=== PATIENT | female | born 1965 | race Caucasian/White ===

== ENCOUNTER 2021-08-10 08:57 | Outpatient (CLI) | payer OTHER, MEDICAID, SELFPAY ==
[2021-08-10 09:47] LABS: Hematocrit 38.3 % (37.0-47.0); Hemoglobin 12.7 g/dL (12.0-15.0); Mean Corpuscular HGB Conc 33.2 g/dl (32-36); Mean Corpuscular Hemoglobin 29.7 pg (26-34); Mean Corpuscular Volume 89.7 fl (80-100); Mean Platelet Volume 10.1 fl (7.4-10.4); Platelet Count Result 265 k/mm3 (150-375); Red Blood Count 4.27 M/mm3 (4.2-5.4); Red Cell Distribution Width 12.5 % (11.5-14.5); White Blood Count 6.5 K/mm3 (4.5-10.0)
[2021-08-10 09:52] LABS: Appearance Urine Clear (Clear); Bilirubin Urine Negative (Negative); Blood Urine Trace-lysed (Negative); Color Urine Yellow (Yellow); Glucose Urine UA Negative (Negative); Ketones Urine Negative (Negative); Leukocyte Esterase Ur 1+ LEU/UL (NEGATIVE); Nitrate Urine Negative (Negative); Protein Urine Negative (Negative); Specific Grav Ur 1.015 (1.001-1.035); Urobilinogen Urine 0.2 mg/dL (<2.0); pH Urine 5.5 (5.0-9.0)
[2021-08-10 09:56] LABS: Add Urine Microscopic? YES
[2021-08-10 09:56] LABS: Alanine Aminotransferase 14 U/L (6-35); Albumin Level 4.6 g/dL (3.5-5.1); Alkaline Phosphatase 69 U/L (38-126); Anion Gap 4 mmol/L (8-16); Aspartate Amino Transferase 22 U/L (14-36); Bilirubin,Total 0.5 mg/dL (0.2-1.3); Blood Urea Nitrogen 17 mg/dL (7-17); Calcium 9.2 mg/dL (8.4-10.2); Carbon Dioxide 29 mmol/L (22-30); Chloride 106 mmol/L (98-107); Cholesterol 180 mg/dL (0-200); Estimated Glomerular Filt Rate > 60; Glucose 82 mg/dL (65-110); HDL Direct 50 mg/dL; Potassium 3.9 mmol/L (3.4-5.0); Sodium 139 mmol/L (137-145); Triglycerides 65 mg/dL (<150)
[2021-08-10 10:03] LABS: Mucus Urine Few /lpf; RBC Urine 0-2 /hpf (0-2); Squamous Epithelial Cell Urine Occasional /hpf (Few)
[2021-08-10 10:07] LABS: LDL Cholesterol Direct 89 mg/dL
[2021-08-10 14:00] LABS: Hemoglobin A1C 5.7 % (<5.7)
== END 2021-08-10 08:58 | disposition home or self-care (01) ==
LOC: ANHLAB 09:04
PROVIDERS: Visit Provider Nurse Practitioner Family
DX: Z00.00 Encounter for general adult medical examination without abnormal findings (principal); Z13.29 Encounter for screening for other suspected endocrine disorder; Z13.1 Encounter for screening for diabetes mellitus; Z13.89 Encounter for screening for other disorder
CPT/HCPCS: 36415; 80053; 80061; 81001; 83036; 84443; 85027

== ENCOUNTER 2021-11-12 08:40 | Outpatient (CLI) | payer OTHER, MEDICAID, SELFPAY ==
--- NOTE | ~2021-11-12 | MM_ITS ---
EXAMINATION: MM screening sd BI w daria HISTORY: Screening mammogram TECHNIQUE: Craniocaudal and mediolateral oblique 3-D tomosynthesis images were obtained and synthetic 2-D images were generated. CAD analysis was submitted and interpreted. COMPARISON: 07/17/2014, 11/15/2012 bilateral screening mammogram examinations BREAST PARENCHYMAL COMPOSITION: There are scattered areas of fibroglandular density. FINDINGS: Subtle grouped microcalcifications are suggested in the outer anterior left breast on CC vi ew; diagnostic left mammogram with magnification views is recommended. Otherwise there is no evidence of suspicious mass, calcification, or architectural distortion to sugg est malignancy in either breast. There has been no other suspicious interval change. IMPRESSION: 1. Possible subtle grouped microcalcifications, anterior outer left breast on CC view 2. Diagnostic left mammogram is recommended BI-RADS Category 0: Incomplete: Needs additional imaging evaluation. Reviewed, dictated and finalized at location A. IMPRESSION: 1. Possible subtle grouped microcalcifications, anterior outer left breast on C C view 2. Diagnostic left mammogram is recommended BI-RADS Category 0: Incomplete: Needs additional imaging evaluation.
== END 2021-11-12 08:41 | disposition home or self-care (01) ==
PROVIDERS: Visit Provider Nurse Practitioner Family
DX: Z12.31 Encounter for screening mammogram for malignant neoplasm of breast (principal); R92.8 Other abnormal and inconclusive findings on diagnostic imaging of breast
CPT/HCPCS: 77063; 77067

== ENCOUNTER 2021-12-24 11:50 | Outpatient (CLI) | payer OTHER, MEDICAID, SELFPAY ==
--- NOTE | ~2021-12-24 | MM_ITS ---
EXAMINATION: MM diagnostic sd LT w daria HISTORY: Indeterminate left breast calcifications on screening mammogram TECHNIQUE: Magnification views of the left breast were performed and synthetic 2-D images were genera nicolette. CAD analysis was submitted and interpreted. COMPARISON: 11/12/2021, 07/25/2014, 11/15/2012 FINDINGS: No definite persistent calcifications are identified with magnification views. Screening ma mmogram finding likely reflects pseudocalcification. No suspicious mass or architectural distortion a re identified. IMPRESSION: 1. No mammographic evidence of malignancy. 2. Recommend routine screening mammography in one year. BI-RADS Category 1: Negative Reviewed, dictated and finalized at location A.
== END 2021-12-24 11:51 | disposition home or self-care (01) ==
PROVIDERS: PCP Family Medicine; Visit Provider Nurse Practitioner Family
DX: R92.8 Other abnormal and inconclusive findings on diagnostic imaging of breast (principal)
CPT/HCPCS: 77061; 77065; G0279

== ENCOUNTER 2022-08-23 09:52 | Outpatient (CLI) | payer OTHER, MEDICAID, SELFPAY ==
[2022-08-23 10:54] LABS: Hemoglobin 12.7 g/dL (12.0-15.0); Mean Corpuscular HGB Conc 31.8 g/dl (32-36); Mean Corpuscular Hemoglobin 28.9 pg (26-34); Mean Corpuscular Volume 91.1 fl (80-100); Mean Platelet Volume 10.1 fl (7.4-10.4); Platelet Count Result 270 k/mm3 (150-375); Red Blood Count 4.39 M/mm3 (4.2-5.4); Red Cell Distribution Width 12.3 % (11.5-14.5); White Blood Count 6.1 K/mm3 (4.5-10.0)
[2022-08-23 10:57] LABS: Appearance Urine Clear (Clear); Bilirubin Urine Negative (Negative); Blood Urine Negative (Negative); Color Urine Yellow (Yellow); Glucose Urine UA Negative (Negative); Ketones Urine Negative (Negative); Leukocyte Esterase Ur Negative LEU/UL (NEGATIVE); Nitrate Urine Negative (Negative); Protein Urine Negative (Negative); Specific Grav Ur 1.008 (1.001-1.035); Urobilinogen Urine 0.2 mg/dL (<2.0); pH Urine 5.5 (5.0-9.0)
[2022-08-23 11:01] LABS: Add Urine Microscopic? NO
[2022-08-23 11:03] LABS: Hemoglobin A1C 5.7 % (<5.7)
[2022-08-23 11:04] LABS: Alanine Aminotransferase 20 U/L (6-35); Albumin Level 4.8 g/dL (3.5-5.1); Alkaline Phosphatase 77 U/L (38-126); Anion Gap 7 mmol/L (8-16); Aspartate Amino Transferase 27 U/L (14-36); Bilirubin,Total 0.7 mg/dL (0.2-1.3); Blood Urea Nitrogen 17 mg/dL (7-17); Calcium 9.5 mg/dL (8.4-10.2); Carbon Dioxide 28 mmol/L (22-30); Chloride 101 mmol/L (98-107); Cholesterol 198 mg/dL (0-200); Estimated Glomerular Filt Rate 52; Glucose 89 mg/dL (65-110); HDL Direct 68 mg/dL; Potassium 4.3 mmol/L (3.4-5.0); Sodium 136 mmol/L (137-145); Triglycerides 83 mg/dL (<150)
[2022-08-23 11:15] LABS: LDL Cholesterol Direct 100 mg/dL
== END 2022-08-23 09:53 | disposition home or self-care (01) ==
PROVIDERS: PCP Family Medicine; Visit Provider Nurse Practitioner Family
DX: Z00.01 Encounter for general adult medical examination with abnormal findings (principal); Z13.29 Encounter for screening for other suspected endocrine disorder; Z13.220 Encounter for screening for lipoid disorders; Z13.89 Encounter for screening for other disorder; Z13.1 Encounter for screening for diabetes mellitus
CPT/HCPCS: 36415; 80053; 80061; 81003; 83036; 84443; 85027

== ENCOUNTER 2023-12-02 10:16 | Outpatient (CLI) | payer OTHER, SELFPAY ==
--- NOTE | ~2023-12-02 | XR_ITS ---
Clinical Indication: Dyspnea PA and lateral views of the chest: Comparison: None Findings: The lungs are clear, without evidence of focal consolidation or pleural effusion. Cardiome diastinal silhouette is within normal limits. Bones and soft tissues are unremarkable. Impression: Normal chest. Reviewed, dictated and finalized at location . Impression: Normal chest.
[2023-12-02 10:46] LABS: Basophils Percent Auto 0.4 % (0.2-1.2); Eosinophils Absolute Auto 0.2 K/mm3 (0-0.3); Eosinophils Percent Auto 2.1 % (0-4.4); Hematocrit 36.6 % (37.0-47.0); Immature Granulocyte Absolute 0.03 K/mm3 (0.00-0.031); Immature Granulocyte Percent A 0.4 % (0-0.5); Lymphocytes Absolute Auto 1.32 K/mm3 (0.9-3.2); Lymphocytes Percent Auto 17.2 % (18.3-44.2); Mean Corpuscular HGB Conc 32.8 g/dl (32-36); Mean Corpuscular Hemoglobin 30.6 pg (26-34); Mean Corpuscular Volume 93.4 fl (80-100); Mean Platelet Volume 9.4 fl (7.4-10.4); Monocytes Absolute Auto 0.8 K/mm3 (0.1-0.6); Monocytes Percent Auto 10.2 % (2.6-8.5); Neutrophils Absolute Auto 5.4 K/mm3 (1.3-6.7); Neutrophils Percent Auto 69.7 % (45.5-73.1); Platelet Count Result 241 k/mm3 (150-375); Red Blood Count 3.92 M/mm3 (4.2-5.4); Red Cell Distribution Width 12.9 % (11.5-14.5); White Blood Count 7.7 K/mm3 (4.5-10.0)
[2023-12-02 11:08] LABS: LDL Cholesterol Direct 83 mg/dL
[2023-12-02 11:19] LABS: Rheumatoid Factor < 12.0 IU/ML (<12)
[2023-12-02 11:21] LABS: Alanine Aminotransferase 16 U/L (6-35); Albumin Level 4.4 g/dL (3.5-5.1); Alkaline Phosphatase 79 U/L (38-126); Anion Gap 9 mmol/L (4-12); Aspartate Amino Transferase 24 U/L (14-36); Bilirubin,Total 0.8 mg/dL (0.2-1.3); Blood Urea Nitrogen 12 mg/dL (7-17); CRP 1.9 mg/dL (<1.0); Calcium 9.4 mg/dL (8.4-10.2); Carbon Dioxide 26 mmol/L (22-30); Chloride 103 mmol/L (98-107); Cholesterol 189 mg/dL (0-200); Estimated Glomerular Filt Rate 57; Glucose 94 mg/dL (65-110); HDL Direct 70 mg/dL; Potassium 4.4 mmol/L (3.4-5.0); Sodium 138 mmol/L (137-145); Triglycerides 58 mg/dL (<150)
[2023-12-02 11:28] LABS: Hemoglobin A1C 5.9 % (<5.7)
[2023-12-02 11:38] LABS: Vitamin D 25 Hydroxy 30.3 ng/mL
[2023-12-02 11:51] LABS: Thyroid Stimulating Hormone Reflex 0.579 uIU/mL (0.465-4.68)
== END 2023-12-02 10:17 | disposition home or self-care (01) ==
LOC: ANHLAB 10:20
PROVIDERS: PCP Family Medicine; Visit Provider Nurse Practitioner Family
DX: Z00.00 Encounter for general adult medical examination without abnormal findings (principal); I10 Essential (primary) hypertension; M25.50 Pain in unspecified joint; R06.00 Dyspnea, unspecified
CPT/HCPCS: 36415; 71046; 80053; 80061; 82306; 83036; 84443; 85025; 86038; 86039; 86140; 86430

== ENCOUNTER 2023-12-06 15:08 | Outpatient (CLI) | payer OTHER, SELFPAY ==
--- NOTE | ~2023-12-06 | MM_ITS ---
EXAMINATION: MM screening sd BI w daria HISTORY: Screening TECHNIQUE: Craniocaudal and mediolateral oblique 3-D tomosynthesis images were obtained and synthetic 2-D images were generated. CAD analysis was submitted and interpreted. COMPARISON: Comparison to multiple prior studies sequentially, with oldest reviewed study dated 07/25. BREAST PARENCHYMAL COMPOSITION: Not dense: There are scattered areas of fibroglandular density. FINDINGS: There is a possible new area of architectural distortion medially in the right breast on CC view. The left breast is stable without evidence for malignancy. IMPRESSION: 1. Possible new architectural distortion of the right breast medially. 2. Additional mammographic views and possible breast ultrasound are recommended. BI-RADS Category 0: Incomplete: Needs additional imaging evaluation. Reviewed, dictated and finalized at location B. IMPRESSION: 1. Possible new architectural distortion of the right breast medially. 2. Additional mammographic views and possible breast ultrasound are recommended . BI-RADS Category 0: Incomplete: Needs additional imaging evaluation.
== END 2023-12-06 15:09 | disposition home or self-care (01) ==
LOC: ANHIMG 15:09
PROVIDERS: PCP Family Medicine; Visit Provider Nurse Practitioner
DX: Z12.31 Encounter for screening mammogram for malignant neoplasm of breast (principal)
CPT/HCPCS: 77063; 77067

== ENCOUNTER 2023-12-28 13:02 | Outpatient (CLI) | payer OTHER, SELFPAY ==
--- NOTE | ~2023-12-28 | MMUS_ITS ---
EXAMINATION: MM diagnostic sd RT w daria, US breast RT limited HISTORY: Possible right breast architectural distortion TECHNIQUE: Additional 3-D tomosynthesis images of the right breast were performed and synthetic 2-D i mages were generated. CAD analysis was submitted and interpreted. High resolution limited right breas t ultrasound was performed. COMPARISON: 12/28/2023, 11/12/2021 BREAST PARENCHYMAL COMPOSITION:Not Dense. There are scattered areas of fibroglandular density. FINDINGS: MAMMOGRAPHIC FINDINGS: Area of possible distortion demonstrates partial effacement on CC view, but effaces on MLO view. No m ass lesion or suspicious calcification. ULTRASOUND: No sonographic abnormality seen in the region scanned. No sonographic correlate for the mammographic finding seen. IMPRESSION: The area of possible distortion in the inner right breast is probably benign, with partial effacemen t and no sonographic correlate. Six-month follow-up right breast mammogram is recommended to ensure s tability. BI-RADS category 3, probably benign findings. Reviewed, dictated and finalized at location M. IMPRESSION: The area of possible distortion in the inner right breast is probably benign, with partial effacement and no sonographic correlate. Six-month follow-up right breast mammogram is recommended to ensure stability. BI-RADS category 3, probably benign findings.
== END 2023-12-28 13:03 | disposition home or self-care (01) ==
LOC: ANHIMG 13:03
PROVIDERS: PCP Family Medicine; Visit Provider Obstetrics & Gynecology
DX: R92.8 Other abnormal and inconclusive findings on diagnostic imaging of breast (principal)
CPT/HCPCS: 76642; 77061; 77065; G0279

== ENCOUNTER 2024-12-20 13:12 | Outpatient (CLI) | payer OTHER, SELFPAY ==
--- NOTE | ~2024-12-20 | MM_ITS ---
EXAMINATION: MM diagnostic sd BI w daria INDICATION: 59-year old female; 6 month follow up possible distortion in the right breast with no sonographic correlate, initially evaluated on 12/28/2023. COMPARISON: 12/28/2023 through 07/25/2014. TECHNIQUE: Bilateral breast Digital breast tomosynthesis ML, CC and MLO views were obtained with computer-aided detection to assist in interpretation of the study. FINDINGS: There are scattered areas of fibroglandular density. The asymmetry of concern in the inner right breast at posteriorthird redemonstrated is Unchanged dating back to mammogram of 11/12/2021. It is therefore considered benign. No other focal dominant mass, architectural distortion, or suspicious microcalcifications are identified. IMPRESSION: Benign mammogram. No mammographic evidence of malignancy in either breast. RECOMMEND: Annual screening mammography in 12 months. BI-RADS 2, BENIGN Reviewed, dictated and finalized at location B.
--- OUTSIDE RECORDS SUMMARY | 2024-12-20 14:08 | XMS_ITS | Clinical Summary ---
Author Organization [facility] Address [address] 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 Gender Identity Not on file Sexual Orientation Not on file Plan of Treatment Health Maintenance Due Date Last Done Comments DTAP/TDAP/TD VACCINES (1 - Tdap) 07/06/1986 HEPATITIS B VACCINES (1 of 3 - 19+ 3-dose series) 10/1986 HPV/Cotest (21-29) 07/06/1988 CERVICAL CANCER SCREENING 07/06/1997 HPV/Cotest (30-65) 07/06/1997 PAP SMEAR 07/06/1997 BREAST CANCER SCREENING 2007 COLORECTAL SCREENING 07/06/2012 Colorectal Cancer Screening 07/06/2012 FIT-DNA Q 3 years 07/06/2012 FIT/FOBT Q 1 year 07/06/2012 Flex Sig/CT Colonography Q 5 years 07/06/2012 ZOSTER VACCINE (1 of 2) 07/06/2017 INFLUENZA VACCINE (#1) 2024
--- OUTSIDE RECORDS SUMMARY | 2024-12-20 14:09 | XMS_ITS | Data Portability ---
Author Organization [facility] [place] Address [address] [place] [address] [place] [address] Assessment Encounter Date Assessment Date Assessment LastModified by Organization Details LastModified Time 09/24/2019 09/24/2019 Annual gynecological exam performed. Patient will come back in a year unless there are new symptoms. [email or web address] Not available 09/24/2019 14:59:19 10/13/2020 10/13/2020 Annual gynecological exam performed. Patient will come back in a year unless there are new symptoms. Not available 10/13/2020 13:37:10 09/28/2023 09/28/2023 Annual gynecological exam performed. Patient will come back in a year unless there are new symptoms. [email or web address] Not available 09/28/2023 09:50:54 10/02/2024 10/02/2024 Annual gynecological exam performed. Patient will come back in a year unless there are new symptoms. [email or web address] Not available 10/02/2024 12:24:02 Plan of Treatment Reminders Order Date Submit Date Provider Last Modified By Organization Details Last Modified Time Details Appointments None recorded. Lab None recorded. Referral None recorded. Procedures None recorded. Surgeries None recorded. Imaging MAMMO, diagnostic , digital, bilateral - Due for f/u right breast imaging, also due for bilateral screening mammogram 2024 025 [facility] (Mammography) , [address], [place], [address], 14:24:40 US, breast, unilateral 2024 025 [facility], [address], [place], [address], 5 04:01:18 MAMMO, screening, digital, bilateral 2023 024 [facility], [address], [place], [address], 4 18:19:23 Medication Orders None recorded. Patient TargetsNo targets recorded. Patient InstructionsNo instructions recorded. Reason for Referral None Reported. Results Created Date Observation Date Name Description Value Unit Range Abnormal Flag Note LastModifiedBy Organization Detail LastModifiedTime 09/24/19 20 09/26/2019 pap, LB Pap test thin prep Negati ve for Intrae pithel ial Lesion or Malign esau normal ACCES LILIAN #: [id number] Sourc e: Cervi eze/E ndoce rvica l LMP: 07/17 Date Taken : 09/23 Speci men Type: ThinP rep Vial Date Repor zohaib: 2019 Clini eze Data: Cytot ech: Naomi Raza , CT( CP) Date Repor zohaib: 2019 Speci men Adequ acy: Satis facto ry for evalu ation Endoc ervic al/tr ansfo rmati on zone compo nent prese nt Gener al Categ oriza tion: NEGAT CAROLE FOR INTRA EPITH ELIAL LESIO N OR MALIG MERLYN This speci men has been dar zed by the ThinP rep Imagi ng Syste m, an inter activ e compu ter syste m which geovanni ts the lab in the scree doreen of ThinP rep Pap Test slide s. Follo wing imagi ng, the slide was revie wed by a Cytot echno logis t and/o r Patho logis t. D N A A S S A Y S R E P O R T TEST NAME RESUL TS ----- ---- ----- -- HPV High Risk Sasha n (TMA) ThinP rep Vial The human papil lomav irus (HPV) High Risk Sasha n is an FDA-a pprov ed in-vi tro ampli fied nucle ic acid test for the quali tativ e detec tion of E6/E7 viral mRNA. Resul ts shoul d be corre lated with patie nt prese ntati on, histo ry, cervi eze cytol ogy and other clini eze and labor atory findi ngs. See https ://Mediameeting/s ites/ defau lt/fi -0 3/- 48387 _002_ .pd f for furth er infor matio n. Test perfo rmed by [facility], [address], [place] [address] , Gaby Chi ra, DO, Labor [employer] [facility] tor. HPV High Risk *HPV NOT DETEC ZOHAIB (TYPE S 16, 18, 31, 33, 35, 39, 45, 51, 52, 56, 58, 59, 66, 68) *HPV: The human papil lomav irus (HPV) High Risk Sasha reyna is an FDA-a pprov ed in-vi tro ampli fied nucle ic acid test for the quali tativ e detec tion of E6/E7 viral mRNA. Resul annette padgett be corre lated with patie nt prese ntati on, histo ry, cervi eze cytol ogy and other clini eze and labor atory findi ngs. See https ://Mediameeting/s ites/ defau lt/fi -0 3/- 80734 _002_ 01.pd f for furth er infor matio n. Test perfo rmed by [employer] [facility], [address], [place] [address] , Gaby Chi ra, DO, [facility] [employer] [facility] tor. End of Repor t Techn ical servi debra provi ded by [employer] [facility], [address] [place] [address] Terrance Bruce MD, Labor [facility]. Case revie wed and diagn osis rende red at [facility], d/b/a Kevin annal[facility]br[facility], [address] [place] [address] Terrance Bruce MD, Labor [facility]. CONFI DENTI AL Not Available [facility] ([facility]) [address], [place], [address], 09/26/2019 17:06:17 09/24/19 20 09/26/2019 HPV DNA, high- risk HPV high risk NOT DETECT ED normal Not Available [facility] ([facility]) [address], [place], [address], 09/26/2019 17:06:17 09/28/19 24 09/28/2023 IMAGE GUIDE D PAP AND HPV REGAR DLESS image guided Pap, HPV regardless of Pap result SEE RESULT S BELOW CASE REPOR T: Cytol ogy Gynec ologi eze Repor t Case: [id number] Autho riron g Provi savi: Sharron Conrad, [employer]ODUCTION [employer] Colle cted: 09/27 1005 Order ing Locat ion: [place] Path[facility] Recei cony: 09/28 0115 First Scree n: Naomi Anderson ay, CT Speci men: Scree doreen Pap - Image d, Cervi x STATE MENT OF ADEQU ACY: Satis facto ry for evalu ation Trans forma tion zone compo nent canno t be defin itive ly ident ified due to the prese nce of atrop hy or other hormo nal harrison es Parti ally obscu ring blood prese nt ----- ----- ----- ----- ----- ----- ----- ----- ----- ----- ----- ----- ----- ----- ----- ----- ----- ---- FINAL DIAGN OSIS: Negat carole for Intra epith elial Lesio n or Hernan juan (NIL) . Atrop hic cell paty aly. Elect kenrick musa yunior d by Naomi Anderson, CT on 024 at 10:40 AM ----- ----- ----- ----- ----- ----- ----- ----- ----- ----- ----- ----- ----- ----- ----- ----- ----- ---- HPV RESUL TS: HPV mRNA E6/E7 : No HPV mRNA Detec zohaib NOTE: This high risk HPV mRNA assay detec ts fourt een high- risk HPV types (16, 18, 31, 33, 35, 39, 45, 51, 52, 56, 58, 59, 66, 68) witho ut diffe renti ation . COMME NT: This speci men was revie wed by a Cytot echno logis t and/o r Patho logis t (as indic ated in this repor t) after evalu ation using the Thinp rep Imagi ng Syste m. CLINI EZE INFOR MATIO N: Menst rual Statu s: LMP (if appli cable ): Clini eze Histo ry/Pr eviou s Pap: Type of Neopl mir (if appli cable ): Signi fican t Clini eze Findi ngs: Other Histo ry: Hormo marciano (if appli cable ): PAP EDUCA LOLY L NOTE: The Pap Test is a scree doreen test with an inher ent false negat carole rate. Liqui d-bas ed sampl ing may decre ase, but will not elimi renuka, false negat carole resul ts. A negat carole resul t does not precl ude the prese nce and/o r devel opmen t of disea se, since the prese nce of abnor mal cells in the sampl e depen ds on the locat ion of the lesio n and sampl ing techn ique. Aaliyah nued regul ar scree doreen is the best metho d of cance r preve ntion . If repor zohaib cytol ogic findi ng do not corre late with physi eze and/o r histo rical findi ngs, mil er inves tigat ion is recom kvng d, as clini kenia kiser nted. Not Available [facility] (Lab) [address], [place], [address], 10/05/2023 11:44:21 12/06/19 24 12/06/2023 MAMMO , scree doreen, digit al, bilat eral No observ ation record ed. [address] [facility], [place], [address], 12/13/2023 12:32:46 12/28/19 24 12/28/2023 US, joyce t, belema teral No observ ation record ed. [address] [address], [place], [address], 01/03/2024 11:36:07 Result Notes None recorded. Procedures Surgical History Date Name Laterality Status Provider Name and Address Organization Details Recorded Time 4 Date of Last Mammogram completed Anat Stewart [facility] 10/02/2024 12:26:09 1 section completed [facility] 10/13/2020 13:48:50 8 section completed [facility] 10/13/2020 13:48:46 0 section completed [facility] 10/13/2020 13:48:58 Imaging Results None recorded. Procedure Notes None recorded. Medical Equipment None Reported. Allergies No known drug allergies Medications Name Sig Start Date Stop Date Status Note LastModified by Organization Details LastModified Time lisinopril 20 mg tablet TAKE 1 TABLET BY MOUTH EVERY DAY active Not Available Not Available No t Available sertraline 100 mg tablet TAKE 1 TABLET BY MOUTH EVERY DAY active Not Available Not Available No t Available buspirone 10 mg tablet TAKE 1 TABLET BY MOUTH TWICE A DAY NEEDED FOR 90 DAYS active Not Available Not Available No t Available hydroxyzine HCl 25 mg tablet TAKE 1 TABLET BY MOUTH THREE TIMES A DAY NEEDED 09/27 completed Not Available Not Available Not Available albuterol sulfate HFA 90 mcg/actuati on aerosol inhaler INHALE 2 PUFFS EVERY 4 HOURS BY INHALATIO N ROUTE. 10/02 completed Not Available Not Available Not Available sertraline 50 mg tablet TAKE 1 TABLET BY MOUTH EVERY DAY 10/02 completed Not Available Not Available Not Available amoxicillin 875 mg-potassiu m clavulanate 125 mg tablet TAKE 1 TABLET BY MOUTH TWICE A DAY FOR 10 DAYS 10/13 completed Not Available Not Available Not Available escitalopra m 10 mg tablet TAKE 1 TABLET BY MOUTH EVERY DAY 10/13 completed Not Available Not Available Not Available escitalopra m 20 mg tablet TAKE 1 TABLET BY MOUTH EVERY DAY 09/27 completed Not Available Not Available Not Available escitalopra m 5 mg tablet TAKE 1 TABLET EVERY DAY BY ORAL ROUTE FOR 30 DAYS. 10/13 completed Not Available Not Available Not Available Vitals Date Recorded Body height Body mass index (BMI) Body weight Systolic And Diastolic Provider Name and Address Organization Details Last Updated DateTime 09/24/2019 1889.76 cm 0.2 kg/m2 28445.86 g 120/82 mm[Hg] Erlinda Shelby [facility] 09/24/2019 15:06:30 Date Recorded Body height Body mass index (BMI) Body weight Systolic And Diastolic Provider Name and Address Organization Details Last Updated DateTime 09/28/2023 154.94 cm 21.7 kg/m2 49500.12 g 104/71 mm[Hg] Ana Maria Castorena [facility] 09/28/2023 09:54:13 Date Recorded Body height Body mass index (BMI) Body weight Systolic And Diastolic Provider Name and Address Organization Details Last Updated DateTime 10/02/2024 154.94 cm 21.7 kg/m2 38155.12 g 114/71 mm[Hg] Anat Stewart [facility] 10/02/2024 12:24:48 Date Recorded Body height Body mass index (BMI) Body weight Systolic And Diastolic Provider Name and Address Organization Details Last Updated DateTime 10/13/2020 154.94 cm 21.7 kg/m2 81549.12 g 111/70 mm[Hg] Kristine Segovia, [facility]- [address], [place], [address], [facility] 10/13/2020 14:08:34 Social History Question Answer Notes LastModified by Organizat ion Details LastModified Time Tobacco Smoking Status Never Smoker Lissette Villareal null, [facility] 10/13/2020 13:38:02 Do You Have An Advance Directive? No Information n ot available 10/13/2020 Are You Blind Or Do You Have Difficulty Seeing? No Information n ot available 10/13/2020 What Is Your Level Of Caffeine Consumption? Moderate Information not available 10/13/2020 In The 14 Days Before Symptom Onset, Have You Had Close Contact With A Laboratory-confirm ed COVID-19 While That Case Was Ill? No Information n ot available 10/13/2020 In The 14 Days Before Symptom Onset, Have You Had Close Contact With A Person Who Is Under Investigation For COVID-19 While That Person Was Ill? No Information not available 10/13/2020 Have You Been To An Area Known To Be High Risk For COVID-19? No Information not available 10/13/2020 Are You Deaf Or Do You Have Serious Difficulty Hearing? No Information not available 10/13/2020 What Type Of Diet Are You Following? REGULAR Information n ot available 10/13/2020 What Is The Highest Grade Or Level Of School You Have Completed Or The Highest Degree You Have Received? [id number] Information not available 10/13/2020 Are There Any Guns Present In Your Home? No [email or web address] Information not available 10/02/2024 Do You Use Protection During Sex? Always Information not available 10/13/2020 Do You Use Your Seat Belt Or Car Seat Routinely? Yes Information not available 10/13/2020 Do You Have Smoke And Carbon Monoxide Detectors In Your Home? Yes Information not available 10/13/2020 How Much Tobacco Do You Smoke? No Information not available 10/13/2020 Do You Use Sunscreen Routinely? No Information not available 10/13/2020 Have You Used IV Drugs? No Information not available 10/13/2020 Sex: Unknown Functional Status Question Answer Note LastModified by Organizat ion Details LastModified Time Do you use any illicit or recreational drugs? No Information not available 10/13/2020 What is your level of alcohol consumption? Occasional Information not available 10/13/2020 Are you able to walk independently without assistance or assistive devices? 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 Occasional Information not available 10/13/2020 Mental Status Question Answer Note LastModified by Organization D etails LastModified Time Do you feel stressed (tense, restless, nervous, or anxious, or unable to sleep at night)? [id number] [email or web address] Information not available 10/02/2024 Family History Relationship Description Onset Age of this Age Resolved Age Notes LastModified by Organization Details LastModified Time Father Hypertensive disorder [email or web address] Not available 2019 15:00:48 Medical History Condition Response Allergies (Food, seasonal, environmental ) N Other N Blood Transfusion N Drug/Latex Allergies/Reactions N Breast Cancer N Dermatologic Disorders N Lung Disease N Defects or Inherited Disease N Breast Problem N Gestational Diabetes N Hematologic disorders N Anesthesia Complications N History of STI N Deep Vein Thrombosis N Polycystic ovary syndrome N Anxiety Disorder Y Autoimmune disease N Arthritis N Infertility N Polyps N Acid Reflux (GERD) N History of abnormal pap N Cancer N Stroke N Varicosities N Neurologic/Epilepsy N Endometriosis N High Cholesterol N Headaches N Fibromyalgia N Kidney Disease N Heart Problems N Kidney or Bladder Problems N Thyroid Problems N GI Problems N Eating Disorder N Anemia N Art (IVF or FET) N Psychiatric Illness N Ovarian Cancer N Diabetes N Pulmonary (TB, Asthma) N Hepatitis/Liver Disease N Eczema N Urinary Tract Infection N Abuse/Domestic Violence N Asthma N Trauma/Violence N Depression/ depression Y Heart Disease N Pre-Eclampsia N Hypertension Y Osteoporosis N Thrombophilias N Gynecological History Statement/Question Response Abnormal Pap N Date of Last Mammogram 12/28/2023 On BCP's at Conception? N N STIs/STDs N HPV Vaccine N Colposcopy 13 Current Control Method Tubal Ligat ion Age at First Child 23 If Post Menopausal, Age at Menopause 45 Date of Last Colonoscopy Sexually Active? N Date of DEXA bone scan Age of first menstrual cycle 15 Date of Last Pap Smear Sexual Problems? N LMP Unknown N Obstetrics History GPAL:G 3 P 0 0 0 3 Type Value Living 3 Total 3 Past Encounters Encounter ID Performer Location Encounter Start Date Encounter Closed Date Diagnosis/Indication Diagnosis SNOMED-CT Code Diagnosis ICD10 Code Diagnosis IMO Codes Diagnosis Note [id number] [facility] [address],[facility] [place] [address] 09/24/2019 14:55:46 09/24/2019 16:14:24 Gynecologic examination 62121030 Z01.419 Take Calcium with Vitamin D 12-1500mg daily. Do monthly self breast exams. It is advised to get annual flu shot in the fall and she could obtain at [facility] or [facility]. If you haven't received the Tdap vaccine in the last 10 years you should obtain one as well. Have mammogram yearly, bone density every 2-3 years and colonoscop y every 5-10 years depending on findings and history. Engage in daily exercise of low impact aerobic exercise 45-60 minutes 4-5 times weekly. Avoid tobacco and illicit drugs as well as using moderation with alcohol intake less than 1-2 8 oz beverages daily. This lifestyle behavior pattern will lead to less health conditions and longer life span. If BMI greater than 25 weight watchers or dietary consult advised. Questions have been answered. Patient appears to understand instructio ns, but if you have any further questions call or respond to this email [id number] [facility] [address] [address] 10/13/2020 13:26:49 10/13/2020 14:11:56 Gynecologic examination 01685522 Z01.419 Take Calcium with Vitamin D 12-1500mg daily. Do monthly self breast exams. It is advised to get annual flu shot in the fall and she could obtain at [facility] or [facility]. If you haven't received the Tdap vaccine in the last 10 years you should obtain one as well. Have mammogram yearly, bone density every 2-3 years and colonoscop y every 5-10 years depending on findings and history. Engage in daily exercise of low impact aerobic exercise 45-60 minutes 4-5 times weekly. Avoid tobacco and illicit drugs as well as using moderation with alcohol intake less than 1-2 8 oz beverages daily. This lifestyle behavior pattern will lead to less health conditions and longer life span. If BMI greater than 25 weight watchers or dietary consult advised. Questions have been answered. Patient appears to understand instructio ns, but if you have any further questions call or respond to this email Pap/hpv hx wnlPap/hpv q3-5yrs per asccp unless otherwise indicated. STD declinedNo issues or concernsMa mmo orderedCol on UTDDexa due next year [id number] GABRIELA Almaraz [facility] [address] [address] 09/28/2023 09:48:11 09/28/2023 10:18:02 Gynecologic examination 41974119 Z01.419 WWEpostmen opausalpap updateddec lined STI screenmamm ogram order givenColon cancer screening discussed - cologuard order sent Do monthly self breast exams. It is advised to get annual flu shot in the fall and she could obtain at local pharmacy. If you haven't received the Tdap vaccine in the last 10 years you should obtain one as well. Have mammogram yearly and stay up to date on colon cancer screening. Engage in regular exercise. Avoid tobacco and illicit drugs. If BMI greater than 25 dietary consult advised. Questions have been answered. Screening for malignant neoplasm of breast [id number] Z12.39 [id number] GABRIELA Almaraz [facility] [address] [address] 10/02/2024 11:42:33 10/02/2024 14:40:02 Gynecologic examination 70843499 Z01.643 [id number] WWEpostmen opausalPap - UTD/not indicated todaySTI screen - declinedMa mmogram - order givenColon cancer screening - cologuard orderedDex a - n/aRoutine labs - PCPRTC in 1 yr or sooner if needed Do monthly self breast exams.It is advised to get annual flu shot in the fall and she could obtain at local pharmacy. If you haven't received the Tdap vaccine in the last 10 years you should obtain one as well.Have mammogram yearly, bone density every 2-3 years and stay up to date on colon cancer screening. Engage in regular exercise. Avoid tobacco and illicit drugs. This lifestyle behavior pattern will lead to less health conditions and longer life span. If BMI greater than 25 dietary consult advised.Qu estions have been answered. Mass of right breast 837 [id number] N63.10 [id number] Due for screening mammogram and repeat right diagnostic imaging, order given Health Concerns Section Related Observation LastModified by Organization Detai ls LastModified Time None Recorded Concern Status LastModified by Organization Details LastModified Time None Recorded Advance Directives Directive N: Payers Insurance Date Sequence Insurance Name Policy Number Policy Oleary Covered Member ID Oleary Member ID Guarantor Name 09/29/2024 1 [facility] [id number] Nilam Escobar [id number] Nilam Escobar 09/28/2023 2 [place] [facility] Nilam Escobar [id number] Nilam Escobar Notes Date Note Type Note Provider Name and Address Organization Details Recorded Time 0 text/html Annual GYNReported by PatientHistoryFor history, patient reportsno gynecologic complaints.Genitourinary symptomsFor menstrual cycle, patient reportsnormal menses. For urinary symptoms, patient reportsno hematuriaandno incontinence. For vulva, patient reportsno genital lesion. For vagina, patient reportsnormal vaginal discharge.Breast symptomsFor breast, patient reportsno breast pain,no breast lump, andno nipple discharge.ContraceptionFo r current contraception, patient reportssatisfied with current contraception(post menopause 2008).Endocrine symptomsFor sexual complaints, patient reportsno sexual complaints,no pain during intercourse, andnormal libido. For menopausal symptoms, patient reportsno menopausal symptomsandnormal vaginal lubrication.Psychological symptomsFor psychological symptoms, patient reportsno depression,no anxiety, andno pmdd.Preventative measuresFor preventive measures, patient reportsencourage self breast examination,encourage regular exercise,encourage no tobacco use,encourage regular mammograms starting age 40,needs to schedule mammogram, andup to date on colonoscopy screening. Kristine Segovia, [facility] [address], [place], [address], [facility] 09/24/2019 15:31:10 1 text/html Annual [employer] Post-MenopausalReported by PatientGenitourinary symptomsFor menopausal symptoms, patient reportsno menopausal symptomsandnormal vaginal lubrication. For vaginal bleeding, patient reportshistory of menopause having occurredandno history of post menopausal bleeding. For urinary symptoms, patient reportsno hematuria,no incontinence,no nocturia, andno urinary frequency. For vulva, patient reportsno genital lesionandno vulvar atrophy. For vagina, patient reportsnormal vaginal dischargeandno vaginal atrophy.Breast symptomsFor breast, patient reportsno breast lump,no nipple discharge, andno breast pain.Psychological symptomsFor sexual complaints, patient reportsno sexual complaints. For psychological symptoms, patient reportsno depressionandno anxiety.Preventative measuresFor preventive measures, patient reportsencourage regular mammograms starting age 40,encourage self breast examination,encourage regular exercise,encourage no tobacco use,needs to schedule mammogram, andhistory of recent colonoscopy. Kristine Segovia [facility] [address], [place], [address], [facility] 10/13/2020 14:09:27 4 text/html Annual [employer] Post-MenopausalReported by PatientGenitourinary symptomsFor menopausal symptoms, patient reportsno menopausal symptomsandnormal vaginal lubrication. For vaginal bleeding, patient reportshistory of menopause having occurredandno history of post menopausal bleeding. For urinary symptoms, patient reportsno hematuria,no incontinence,no nocturia, andno urinary frequency. For vulva, patient reportsno genital lesionandno vulvar atrophy. For vagina, patient reportsnormal vaginal dischargeandno vaginal atrophy.Breast symptomsFor breast, patient reportsno breast lump,no nipple discharge, andno breast pain.Psychological symptomsFor sexual complaints, patient reportsno sexual complaints. For psychological symptoms, patient reportsno depressionandno anxiety.Preventative measuresFor preventive measures, patient reportsencourage regular mammograms starting age 40,encourage self breast examination,encourage regular exercise, andencourage no tobacco use.58yo WWEpostmenopausalno h/o abnormal papslast pap 2019 - normalmammogram last ologuard done 5 yrs ago GABRIELA Almaraz [address], [place], [address], [facility] 09/28/2023 10:17:16 5 text/html Annual [employer] Post-MenopausalReported by PatientGenitourinary symptomsFor menopausal symptoms, patient reportsno menopausal symptomsandnormal vaginal lubrication. For vaginal bleeding, patient reportshistory of menopause having occurredandno history of post menopausal bleeding. For urinary symptoms, patient reportsno hematuria,no incontinence,no nocturia, andno urinary frequency. For vulva, patient reportsno genital lesionandno vulvar atrophy. For vagina, patient reportsnormal vaginal dischargeandno vaginal atrophy.Breast symptomsFor breast, patient reportsno breast lump,no nipple discharge, andno breast pain.Psychological symptomsFor sexual complaints, patient reportsno sexual complaints. For psychological symptoms, patient reportsno depressionandno anxiety.Preventative measuresFor preventive measures, patient reportsencourage regular mammograms starting age 40,encourage self breast examination,encourage regular exercise, andencourage no tobacco use.59yo wwepostmenopausallast pap 08/2023 : nilm, HPV (-)mammogram last 11/2023 : bi-rads 3 (still needs f/u 6 month right breast imaging)cologuard done 5 yrs ago GABRIELA Almaraz [address], [place], [address], [facility] 10/02/2024 14:38:53 OBGyn Episode Ob Episode Information Episode Created Date Number of Fetuses Patient Bloodtype Patient rh Status Prepregnancy Weight lbs Domestic Partner Domestic Partner Phone Father Name Diet Assistant Status 09/24/19 20 1 CLOSED Fetus Data First Name Last Name Admitted to NICU Weight (g) Sex Living Outcome Pediatric Complications Fetus ID Race Codes Race Delivery Type [id number] Primary Pito Calculation Initial Pito Date Initial Exam Date Initial Exam Provider Initial Ultrasound Date Last Menstrual Period Date Ultra Sound Weeks Gestation 0 Eighteen To Twenty Week Pito Update Ultra Sound Date Fundal Height At Umbil Quickening Date Ultra Sound Latest Weeks Gestation Final Pito Confirmed By Final Pito Confirmed Date Final Pito Date Ultra Sound Latest Days Gestation 0 0 Menstrual History Last Menstrual Date Menses Monthly On Bcp Conception Prior Menses Frequency Hcg Plus Date Menarche Onset Age Delivery Information Delivery Date Delivery Type Labor Anesthesia Weeks Gestation Incision Type Labor Labor Length Hrs Delivered By Post Complications Tubal Sterilization Discharge Date Comments 8 Discharge Information Feeding Method Contraceptive Method Maternal HG B and HCT Levels Ob Episode Information Episode Created Date Number of Fetuses Patient Bloodtype Patient rh Status Prepregnancy Weight lbs Domestic Partner Domestic Partner Phone Father Name Diet Assistant Status 09/24/19 20 1 CLOSED Fetus Data First Name Last Name Admitted to NICU Weight (g) Sex Living Outcome Pediatric Complications Fetus ID Race Codes Race Delivery Type [id number] Primary Pito Calculation Initial Pito Date Initial Exam Date Initial Exam Provider Initial Ultrasound Date Last Menstrual Period Date Ultra Sound Weeks Gestation 0 Eighteen To Twenty Week Pito Update Ultra Sound Date Fundal Height At Umbil Quickening Date Ultra Sound Latest Weeks Gestation Final Pito Confirmed By Final Pito Confirmed Date Final Pito Date Ultra Sound Latest Days Gestation 0 0 Menstrual History Last Menstrual Date Menses Monthly On Bcp Conception Prior Menses Frequency Hcg Plus Date Menarche Onset Age Delivery Information Delivery Date Delivery Type Labor Anesthesia Weeks Gestation Incision Type Labor Labor Length Hrs Delivered By Post Complications Tubal Sterilization Discharge Date Comments 1 Discharge Information Feeding Method Contraceptive Method Maternal HG B and HCT Levels Ob Episode Information Episode Created Date Number of Fetuses Patient Bloodtype Patient rh Status Prepregnancy Weight lbs Domestic Partner Domestic Partner Phone Father Name Diet Assistant Status 09/24/19 20 1 CLOSED Fetus Data First Name Last Name Admitted to NICU Weight (g) Sex Living Outcome Pediatric Complications Fetus ID Race Codes Race Delivery Type [id number] Primary Pito Calculation Initial Pito Date Initial Exam Date Initial Exam Provider Initial Ultrasound Date Last Menstrual Period Date Ultra Sound Weeks Gestation 0 Eighteen To Twenty Week Pito Update Ultra Sound Date Fundal Height At Umbil Quickening Date Ultra Sound Latest Weeks Gestation Final Pito Confirmed By Final Pito Confirmed Date Final Pito Date Ultra Sound Latest Days Gestation 0 0 Menstrual History Last Menstrual Date Menses Monthly On Bcp Conception Prior Menses Frequency Hcg Plus Date Menarche Onset Age Delivery Information Delivery Date Delivery Type Labor Anesthesia Weeks Gestation Incision Type Labor Labor Length Hrs Delivered By Post Complications Tubal Sterilization Discharge Date Comments 04/29/199 0 Discharge Information Feeding Method Contraceptive Method Maternal HG B and HCT Levels
--- OUTSIDE RECORDS SUMMARY | 2024-12-20 14:09 | XMS_ITS | Clinical Summary ---
Author Organization [facility] [employer] Address [address] [place] [address] Care Team Providers Care Grades 1 Through 5 Teacher Name Role Phone Lisandra Harris DBAS-HUMAN RESOURCES EXECUTIVE ASSISTANT Primary Care Provider + Source Comments [facility] [employer],non-owned Affiliates and Associated Physician Practices is amultiple site organization consisting of ambulatory clinics and hospital sitesin [place], [place], [place] and [place]. This disclosure is being madepursuant to the Care Everywhere program and may not contain all information available regarding this patient. Last updated 17.[facility] [employer] Allergies No known active allergies Medications * Be aware that medications may not be up to date on this document. Alwaysverify current medications with the patient. busPIRone (Buspar) 10 MG tablet TAKE 1 TABLET BY MOUTH TWICE A DAY NEEDED FOR 90 DAYS Active lisinopril (Prinivil; Zestril) 20 MG tablet Take 1 (one) tablet by mouth once daily Active sertraline (Zoloft) 100 MG tablet Take 1 (one) tablet by mouth once daily Active Active Problems No known active problems Social History Tobacco Use Types Packs/Day Years Used Date Smoking Tobacco: Never Smokeless Tobacco: Never Tobacco Cessation:Counseling Given: Not Answered Alcohol Use Standard Drinks/Week Comments Not Currently 0 (1 standard drink = 0.6 oz pur e alcohol) Comments Unknown Sex and Gender Information Value Date Recorded Sex Assigned at Not on file Legal Sex Female 2:48 PM CDT Gender Identity Not on file Sexual Orientation Not on file Last Filed Vital Signs Vital Sign Reading Time Taken Comments Blood Pressure 100/60 12/19/2023 12:49 PM CDT Pulse 88 12/19/2023 12:49 PM CDT Temperature 36.7 C (98 F) 12/19/2023 12:49 PM CDT Respiratory Rate 16 12/19/2023 12:49 PM CDT Oxygen Saturation 98% 12/19/2023 12:49 PM CDT Inhaled Oxygen Concentration - - Weight 52.2 kg (115 lb) 12/19/2023 12:49 PM CDT Height 157.5 cm (5' 2) 12/19/2023 12:49 PM CDT Body Mass Index 21.03 12/19/2023 12:49 PM CDT Plan of Treatment Health Maintenance Due Date Last Done Comments COLON MONITORING 1967 COLONOSCOPY - COLON CA SCREENING 1967 CT COLONOGRAPHY - COLON CA SCREENING 1967 FIT - COLON CA SCREENING 1967 FLEX SIG - COLON CA SCREENING 1967 LIPID TESTING 1965 MAMMOGRAM 1967 HIV SCREENING 07/06/1982 HEPATITIS C SCREENING 07/02/1985 DTAP/TDAP/TD VACCINES (1 - Tdap) 07/06/1986 HEPATITIS B VACCINE (1 of 3 - 19+ 3-dose series) 07/06/1986 PNEUMOCOCCAL VACCINE 50+ (1 of 1 - PCV) 07/06/2017 ZOSTER VACCINE (1 of 2) 07/06/2017 DEPRESSION SCREENING 02/29/2024 COLOGUARD (AGES 45-75) - COL ON CA SCREENING 08/19/2024 08/19/2021 Colorectal Cancer Screening 08/19/2024 COVID-19 VACCINE (3 - 2024-2 6 season) 2024 03/09/2021, 05/05/2020 INFLUENZA VACCINE (#1) 2024 , 01/27/2016, 12/17/2013 PAP SMEAR 09/27/2026 09/28/2023, 09/28/2023 HIB VACCINE Aged Out No longer eligi ble based on patient's age to complete this topic HPV VACCINE Aged Out No longer eligi ble based on patient's age to complete this topic MENINGOCOCCAL (Group B) VACCINE SHARED DECISION-MAKING Aged Out No longer eligible based on patient's age to complete this topic MENINGOCOCCAL GROUPS A/C/Y/W VACCINE Aged Out No longer eligible b ased on patient's age to complete this topic Insurance [facility] Care Teams Grades 1 Through 5 Teacher Relationship Specialty Start Date End Date Lisandra Harris, DBAS-HUMAN RESOURCES EXECUTIVE ASSISTANT [address] [place] [address] PCP - General Family Medicine 12/19/23
--- OUTSIDE RECORDS SUMMARY | 2024-12-20 14:09 | XMS_ITS | Encounter Summary ---
Author Organization [facility] Address [address] [place] [address] Care Team Providers Care Title Abstractor Name Role Phone Unavailable Primary Care Provider Unavailabl e Encounter Details Date Type Department Care Team (Latest Contact Info) Description 01/11/1998 Inpatient Historical HIS PATIENT IN A BED (Excluded Provider) Miguel Angel Ortez MD NO ADDRESS ON FILE Deep transverse arrest and persistent occipitoposterior position during labor and deliver, delivered (Primary Dx) Social History Tobacco Use Types Packs/Day Years Used Date Smoking Tobacco: Never Assessed Comments Unknown Sex and Gender Information Value Date Recorded Sex Assigned at Not on file Legal Sex Female 3:11 AM 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
--- OUTSIDE RECORDS SUMMARY | 2024-12-20 14:09 | XMS_ITS | Clinical Summary ---
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 Gender Identity Not on file Sexual Orientation Not on file Plan of Treatment Health Maintenance Due Date Last Done Comments Hepatitis C Virus (HCV) Screening 1965 Hepatitis B Immunization (1 of 3 - 19+ 3-dose series) 07/06/1986 Pap Smear 07/06/1988 Cervical Cancer Screening (CCS) 07/06/1997 HPV/Cotest 07/06/1997 Cologuard 07/06/2012 Colonoscopy 07/06/2012 Colorectal Cancer Screening 07/06/2012 Immunochemical Fecal Occult Blood 07/06/2012 Pneumococcal Immunization (5 0+ years) (1 of 1 - PCV) 07/06/2017 Zoster Immunization (1 of 2) 07/06/2017 Influenza Immunization (#1) 2024 11/2 10/2015, 12/17/2013 SARS-COV-2 Immunization (3 - 2024- season) 2024 03/09/2021, 05/05/2020 Respiratory Syncytial Virus (RSV) Immunization (Adult) (1 - 1-dose 75+ series) 07/06/2042 DTaP/Tdap/Td Immunization Discontinued 2013, 03/29/2012 TdaP Immunization Completed 08/23/2013, 03/29/2012 Human Papillomavirus (HPV) Immunization Aged Out No longer eligible based on patient's age to complete this topic Meningococcal Immunization (ACWY) Aged Out No longer eligible based on patient's age to complete this topic Rotavirus Immunization Aged Out No lo nger eligible based on patient's age to complete this topic
== END 2024-12-20 13:13 | disposition home or self-care (01) ==
PROVIDERS: PCP Family Medicine; Visit Provider Nurse Practitioner
DX: R92.8 Other abnormal and inconclusive findings on diagnostic imaging of breast (principal)
CPT/HCPCS: 77062; 77066; G0279